=== PATIENT | male | born 1940 | race Caucasian/White ===

== ENCOUNTER 2017-11-07 13:39 | Outpatient (CLI) | payer MEDICARE ==
--- NOTE | 2017-11-07 14:40 | ULT ---
DOPPLER DUPLEX VENOUS ULTRASOUND OF THE RIGHT LOWER EXTREMITY: CPT: 66831 ICD-10-PCS: B54D INDICATIONS: Right lower extremity pain. TECHNIQUE: Color-flow Doppler, spectral wave-form analysis of pulsed Doppler, and Banks-scale imaging with compre ssion and augmentation were used to evaluate the bilateral common femoral, femoral, popliteal, merchandising stock associate ior tibial, and superficial femoral veins, and the proximal portions of the profunda femoral and grea ter saphenous veins. FINDINGS: Appropriate compressibility and flow within the imaged deep venous system of the right lower extremit y. There is soft tissue edema. IMPRESSION: 1. No deep venous thrombosis. 2. Soft tissue edema. Correlate clinically. POS: [facility]
== END 2017-11-07 13:40 | disposition home or self-care (01) ==
LOC: ULT 13:39
PROVIDERS: ATTEND Family Medicine
DX: I82.401 Acute embolism and thrombosis of unspecified deep veins of right lower extremity (principal); M79.9 Soft tissue disorder, unspecified

== ENCOUNTER 2017-11-17 12:03 | Outpatient (CLI) | payer MEDICARE ==
--- NOTE | 2017-11-17 13:39 | RAD ---
CHEST TWO VIEWS: HISTORY: Dyspnea. COMPARISON: 05/05/2017 FINDINGS: Chronic changes of the lung parenchyma with stable hyperinflation. Stable configuration of the cardi ac silhouette. Atherosclerosis is noted. IMPRESSION: Chronic changes. POS: [facility]
== END 2017-11-17 12:04 | disposition home or self-care (01) ==
LOC: RAD 12:03
PROVIDERS: ATTEND Internal Medicine Pulmonary Disease
DX: R06.00 Dyspnea, unspecified (principal)
CPT/HCPCS: 71046

== ENCOUNTER 2017-11-17 13:18 | Inpatient (IN) | payer MEDICARE ==
[2017-11-17 14:01] LABS: #Eosinphils 0.6 thou/uL (0.0-0.7); #Lymphocytes 1.1 thou/uL (1.20-3.40); #Monocytes 0.6 thou/uL (0.11-0.59); #Neutrophils 7.3 thou/uL (1.40-6.50); %Basophils 0.5 % (0.0-1.0); %Eosinophils 6.5 % (0.0-10.0); %Lymphocytes 11.3 % (21.0-51.0); %Monocytes 6.4 % (0.0-10.0); %Neutrophils 75.4 % (42.0-75.0); Hemoglobin 16.5 g/dL (14.0-18.0); Mean Corpuscular HGB CONC 32.9 g/dL (32.0-36.0); Mean Corpuscular Hemoglobin 31.3 pg (27.0-31.0); Mean Corpuscular Volume 95.2 fl (80.0-94.0); Mean Platelet Volume 9.2 fL (7.4-10.4); Platelet Count 149 thou/uL (130-400); RBC Distribution Width 13.7 % (11.5-14.5); Red Blood Cell (RBC) Count 5.28 mill/uL (4.70-6.10); White Blood Cell (WBC) Count 9.7 thou/uL (4.8-10.8)
[2017-11-17] MEDS ORDERED: methylPREDNISolone Sod Succ/PF 125 MG/2 ML VIAL ONE (14:07)
[2017-11-17] MEDS ORDERED: Magnesium Sulfate 2 GM/100 ML BAG ONE (14:08)
[2017-11-17 14:23] LABS: ALT (SGPT) 12 U/L (8-55); AST (SGOT) 22 U/L (5-34); Alkaline Phosphatase 73 U/L (40-150); Anion Gap 13 mmol/L (10-20); BUN (Urea Nitrogen) 17 mg/dL (8.4-25.7); Calc. Creatinine Clearance 0 mL/min (70-130); Calcium 10.4 mg/dL (7.8-10.44); Carbon Dioxide 25 mmol/L (23-31); Chloride 104 mmol/L (98-107); Estimated GFR-MDRD Greater than 90; Globulin 3.7 g/dL (2.4-3.5); Glucose 99 mg/dL (83-110); Potassium 5.1 mmol/L (3.5-5.1); Protein, Total 7.7 g/dL (5.8-8.1); Sodium 137 mmol/L (136-145)
[2017-11-17 14:28] LABS: CKMB 4.2 ng/mL (0-6.6); Troponin I 0.074 ng/mL (< 0.028)
[2017-11-17 15:29] LABS: Troponin I 0.073 ng/mL (< 0.028)
[2017-11-17] MEDS ORDERED: cefTRIAXone\\ROCEPHIN 1 GM in Sodium Chloride 0.9% 100 ML IVPB SCH (16:45)
[2017-11-17] MEDS ORDERED: hydrALAZINE 20 MG/ML VIAL SLOW IVP PRN (16:52)
[2017-11-17] MEDS ORDERED: Ondansetron ODT 4 MG TAB PO PRN (16:52)
[2017-11-17] MEDS ORDERED: Albuterol Sulfate 2.5 mg/3 ml Neb NEB PRN (16:52)
[2017-11-17] MEDS ORDERED: Labetalol HCl 100 MG/20 ML VIAL SLOW IVP PRN (16:52)
[2017-11-17 18:02] VITALS: BMI 36.5
--- NOTE | 2017-11-17 18:03 | HP ---
DATE OF ADMISSION: 11/17/2017 For full history and physical details, please see Dr. Shani Arvizu's dictated H&P. Portions of the hi story and physical have been repeated by myself and I am in agreement with her assessment and plan as documented. HISTORY OF PRESENT ILLNESS: In brief, this patient is a 77-year-old gentleman with a history of afsaneh re COPD and right-sided heart failure. He was sent to the emergency room earlier today at the reques t of his screen room operator. The patient has a history of chronic hypoxic respiratory failure secondary t o severe chronic obstructive pulmonary disease who is typically on 4 liters of oxygen by nasal cannul a at home. However, he reports over the last 2 weeks, he has become increasingly short of breath antoine pite increased use of his nebulizer treatments and COPD medications. He was seen today in his pulmon ologist's office and was found to be satting in the low 80s when his typical oxygen saturations are i n the 90s on 4 liters. The patient was sent to the ER for further evaluation. The patient reports t o me that his symptoms appear to get worse upon lying down, but reports that he is short of breath wi th any amount of exertion which is not standard for him. He also endorses increased cough over the l ast few weeks. He otherwise denies any fevers, chills, chest pain, palpitations, abdominal pain, carmel rrhea, constipation. He does endorse some unilateral lower extremity swelling which was worked up by his outpatient provider with the negative lower extremity ultrasound. The patient reports he was tr eated for approximately 3 weeks for cellulitis and has had improvement in the swelling on right lower extremity. PHYSICAL EXAMINATION: VITAL SIGNS: At this time of my evaluation, the patient's vitals were temperature 98.0, pulse 106, b lood pressure 168/86, respirations 28, oxygen saturation 87% on 4 liters. GENERAL: The patient is alert and oriented x4. He is an obese male who is pleasant. CARDIAC: Evaluation revealed the patient to be mildly tachycardic but regular rhythm. RESPIRATORY: Revealed mildly increased effort. He had poor air entry diffusely. Moderate expirator y wheezes heard throughout the lung fermin. No rhonchi or rales auscultated. ABDOMEN: Soft, nontender with normal bowel sounds. EXTREMITIES: There was no clubbing, cyanosis. Patient did have 2-3+ pitting edema in the right lowe r extremity, more significant than in the left. MUSCULOSKELETAL: There is no increased erythema or warmth in this leg. NEUROLOGIC: Motor and sensory grossly intact. PERTINENT LABORATORY DATA: Show a normal CBC with white count 9.7, H&H 16.5, hematocrit 50.2, platel et count 149. Serum chemistry: Sodium 137, potassium 5.1, chloride 104, bicarbonate 25, BUN 17, cre atinine 0.8, glucose 99. Calcium 10.4. Troponins were indeterminate and elevated at 0.074, then dec reasing to 0.073. Chest x-ray obtained earlier today showed chronic changes including hyperinflation . He had stable configuration of the cardiac silhouette. ASSESSMENT AND PLAN: This is a 77-year-old gentleman with severe chronic obstructive pulmonary disea se with worsening shortness of breath despite supplemental oxygen and increased medical therapy, here for likely chronic obstructive pulmonary disease exacerbation. 1. Acute on chronic hypoxic respiratory failure. The patient will be started on neb treatments as w ell as antibiotics and steroids. We will consult his screen room operator as courtesy and appreciate his in put on this case. The patient has a history of right-sided heart failure, likely chronic obstructive pulmonary disease, but there is currently no evidence of any left-sided dysfunction or pulmonary michelle ma. Anticipate a several day hospitalization as he is likely to slowly improve with severe degree of disease. Also, of note, the patient is supposed to use CPAP therapy, but is noncompliant with this as he reports that he cannot tolerate. I would recommend that we give a trial of that here while in the hospital but he can refuse that if he chooses.
[2017-11-17] MEDS: methylPREDNISolone Sod Succ/PF 125 MG/2 ML VIAL IVP SCH ×2 (18:24→23:06)
--- NOTE | 2017-11-17 20:02 | HP-2 ---
DATE OF ADMISSION: 11/17/2017 CODE STATUS: FULL. PRIMARY CARE PHYSICIAN: Uli Escamilla M.D. ATTENDING: Julien Underwood MD RESIDENT: Shani Arvizu MD SPECIALIST: Reinaldo Nascimento M.D. as decal maker. CHIEF COMPLAINT: Shortness of breath and hypoxia. HISTORY OF PRESENT ILLNESS: This is a 77-year-old male with past medical history of COPD, right-side d heart failure, sent over to the ED from his decal maker's office due to hypoxia with O2 sats arou nd the low 80s on 4 liters oxygen as well as dyspnea. The patient is always on 4 liters of oxygen at home, but he usually sats around 85-90%. The patient reports that he has had increased shortness of breath for the past 2 weeks as well as a cough that is worse when he is lying down. The patient has a cough productive of yellow-green sputum that is blood tinged occasionally. The patient is suppose d to use CPAP at home but has not been compliant. The patient has never been hospitalized for COPD e xacerbation in the past. The patient denies any chest pain or fevers. In the ER, he was given magne sium 2 grams, DuoNebs, and Solu-Medrol 125 mg. PAST MEDICAL HISTORY: 1. COPD. 2. Hypertension. 3. Prostate cancer. 4. Hyperlipidemia. 5. Cor pulmonale. PAST SURGICAL HISTORY: Prostatectomy, bladder surgery, right leg surgery, back surgery, and hernia s urgery. ALLERGIES: No known drug allergies. MEDICATIONS: The patient is uncertain of his medication list at this time, reports his will jerman ng up his medications but knows that he uses Sp[facility]. FAMILY HISTORY: Noncontributory. SOCIAL HISTORY: Former smoker, used to smoke 3-4 packs per day for 40 years but quit 15 years ago. Drinks alcohol socially. Denies drug use. He is . REVIEW OF SYSTEMS: General: Positive for fever and fatigue. Negative for appetite change, night sw eats. EYES: Negative for vision change or eye pain. ENT: Positive for nasal congestion and dry no se secondary to oxygen use. Negative for rhinorrhea, sore throat. Respiratory: Positive for cough, congestion, shortness of breath, exercise intolerance. The patient can only walk a few yards without getting short of breath. Cardiovascular: Positive for edema, PND , and orthopnea. Negative for chest pain. Gastrointestinal: Positive for nausea. Negative for vom iting, diarrhea, constipation, abdominal pain. Genitourinary: Positive for incontinence. Negative for dysuria, polyuria. Skin: Negative for rashes or lesions. Musculoskeletal: Negative for pain o r tenderness. Neurologic: Negative for weakness, numbness. Psych: Negative for anxiety, depressio n. PHYSICAL EXAMINATION: VITAL SIGNS: Blood pressure 168/86, pulse 106, respiratory rate 20, temperature 98.0, pulse ox 87% o n 4 liters. GENERAL: Alert, oriented x3, no acute distress, well-nourished, obese, appropriately interactive. EYES: PERRLA. Extraocular muscles are intact. Conjunctivae are within normal limits. ENT: Nasal mucosa and oropharynx within normal limits. NECK: Supple, no lymphadenopathy. CARDIOVASCULAR: Regular rate and rhythm. No murmurs, gallops, 2+ radial pulses, 2+ left pedal pulse s, and 1+ right pedal pulse. RESPIRATORY: Normal effort, no retractions, decreased air movement and expiratory wheezes. ABDOMEN: Soft, nontender to palpation, normoactive bowel sounds. No mass or distention. EXTREMITIES: No clubbing, cyanosis, or lower extremity edema and erythema. MUSCULOSKELETAL: Structure, tone within normal limits. NEUROLOGIC: No focal deficits. GCS 15. PSYCHIATRIC: Appropriate. LABORATORY DATA: WBC 9.7, hemoglobin 16.5, hematocrit 50.2, platelets 149. Sodium 137, potassium 5. 1, chloride 104, CO2 25, BUN 17, creatinine 0.8, glucose 99, calcium 10.4, AST 22, ALT 12, alkaline p hosphatase 73, T. bilirubin 1.0. Troponin 0.074, CK-MB 4.2. Chest x-ray showed chronic stable hyper inflation atherosclerosis. ASSESSMENT AND PLAN: This is a 77-year-old male with past medical history of chronic obstructive pul monary disease, hypertension, prostate cancer, hyperlipidemia, who presents with increased shortness of breath over the last 2 weeks and decreased oxygen saturation. 1. Acute on chronic hypoxic respiratory failure secondary to chronic obstructive pulmonary disease e xacerbation. We will admit to telemetry, continuous oxygen with goal of greater than 88%. We will t reat with DuoNebs q.4 hours with albuterol q.2 hours p.r.n. for breakthrough shortness of breath or w heezing. We will treat with p.o. prednisone for 5 days and Levaquin. We will monitor oxygen saturat ion breathing. We will consult Dr. Nascimento with Pulmonology and appreciate his recommendations. 2. Indeterminate troponins, likely chronic. The patient has no chest pain. We will trend. 3. Right lower extremity edema. The patient had lower extremity Doppler 10 days ago that was negati ve for deep venous thrombosis. He has been treated for cellulitis and the patient reports that his s ymptoms have improved. The patient has residual edema. We will apply EMERSON hose. 4. Cor pulmonale. We will order an echo, oxygen as needed. Dr. Nascimento has been consulted, appreciate recommendations. 5. Hypertension. Continue home medications. 6. Hyperlipidemia. Continue home medications. 7. Deep venous thrombosis prophylaxis. Lovenox. DISPOSITION/LENGTH OF HOSPITAL STAY. Admit to telemetry likely 2 days. Symptomatic medications will be provided. History and physical exam, as well as management, discussed with Dr. Underwood.
[2017-11-17] MEDS: cefTRIAXone\\ROCEPHIN 1 GM, Syringe 0.4 ML in Sterile Water 9.6 ML SLOW IVP SCH (20:58)
[2017-11-17] MEDS: Mometasone/Formoterol 120 PUFF INHALER INH SCH (21:52)
[2017-11-17] MEDS ORDERED: Atorvastatin Calcium 10 MG TAB PO SCH (22:45)
[2017-11-17] MEDS ORDERED: Lorazepam 0.5 MG TAB PO SCH (22:45)
[2017-11-17] MEDS ORDERED: Sodium Chloride 0.9% 10 ML ONE (23:01)
--- NOTE | 2017-11-18 00:08 | CON ---
DATE OF CONSULTATION: 11/17/2017 HISTORY OF PRESENT ILLNESS: Aris Eagle is a 77-year-old gentleman who was seen in the office w ith shortness of breath of several days' duration. His sats were 82 in my office on 4 liters nasal O 2. He was sent to the ER for admission. He saw Dr. Escamilla recently. Ultrasound of his leg was done because of swelling, which was negative fo r DVT. Can barely walk even 10 feet without getting markedly short of breath. Longstanding history of tobacco abuse. He was smoking up until most recently, at least [id number] tobacco abuse. He h ad a sleep study done, which revealed sleep apnea, but he is unable to wear his CPAP. In the office, he did not have any chest pain, chills, sweats, hemoptysis. Sputum was clear. PAST MEDICAL HISTORY: Prostate cancer, end-stage COPD, sleep apnea. PAST SURGICAL HISTORY: Bladder surgery, right leg and back surgery, prostatectomy. MEDICATIONS: His list of medicine from home includes low-flow O2 nebulizer, CPAP machine. In the ER , he was given steroids, nebulizer treatments. SOCIAL HISTORY: Former smoker. FAMILY HISTORY: I spoke to his son regarding his history intake. PHYSICAL EXAMINATION: VITAL SIGNS: Blood pressure 160/86, respirations 28, pulse 106, temperature 98, sats on 4 liters now 87%. CHEST: Decreased breath sounds. No wheezing. CARDIAC: Normal S1, S2. No gallops. ABDOMEN: Soft. No mass. X-rays and labs were reviewed as noted. REVIEW OF SYSTEMS: Otherwise, 10-point negative. LABORATORY DATA: His white count is 9,000, H&H 16 and 50, platelet count 49. Electrolytes are armando l. Troponin is slightly elevated at 0.073. IMPRESSION: 1. bronchitis. 2. Elevated troponin. 3. Sleep apnea with severe deconditioning. PLAN: Neb treatments ordered. Echo will be ordered. Consider cardiac input. We will follow. This is 70 minutes of my time, of which 50% was spent at the bedside counseling the patient.
[2017-11-18] MEDS ORDERED: Sodium Chloride 0.9% 10 ML ONE ×2 (05:22→20:56)
[2017-11-18 05:43] LABS: Anion Gap 12 mmol/L (10-20); BUN (Urea Nitrogen) 28 mg/dL (8.4-25.7); Calc. Creatinine Clearance 93 mL/min (70-130); Calcium 9.7 mg/dL (7.8-10.44); Carbon Dioxide 27 mmol/L (23-31); Chloride 102 mmol/L (98-107); Estimated GFR-MDRD 72; Glucose 215 mg/dL (83-110); Sodium 136 mmol/L (136-145)
[2017-11-18] MEDS: methylPREDNISolone Sod Succ/PF 125 MG/2 ML VIAL IVP SCH ×4 (05:58→23:06)
[2017-11-18] MEDS ORDERED: Spiriva 18 MCG CAP (Box of 5 Caps) INH SCH (07:00)
--- NOTE | 2017-11-18 08:37 | PDOC.FM ---
- Subjective Subjective: No significant overnight events. Patient states he is doing well this morning. He appears to be slightly tachypneic, but reports he is not short of breath. He feels much improved from yesterday. He has not been up walking around much since he has been in hospital. He was encouraged to ambulate. He is currently on 4L of O2. - Objective MAR Reviewed: Yes Vital Signs & Weight: Vital Signs (12 hours) Temp Pulse Resp BP BP Pulse Ox 11/18/17 07:47 97.5 F L 107 H 19 90 L 11/18/17 07:44 97.5 F L 107 H 19 178/96 H 90 L 11/18/17 04:00 97.9 F 105 H 16 162/81 H 90 L 11/18/17 02:04 106 H 16 94 L 11/18/17 00:45 108 H 16 94 L 11/18/17 00:01 106 H 24 H 138/63 91 L 11/17/17 20:55 97.7 F 115 H 24 H 175/84 H 96 11/17/17 20:50 97.7 F 115 H 24 H 96 Weight Weight 105.687 kg I&O: 11/17/17 11/18/17 11/19/17 06:59 06:59 06:59 Intake Total 1467 Output Total 525 Balance 942 Result Diagrams: 11/17/17 13:45 11/18/17 05:08 EKG Reviewed by me: Yes Radiology Reviewed by me: Yes <Gloria Chang - Last Filed: 11/18/17 08:35> - Objective Vital Signs & Weight: Vital Signs (12 hours) Temp Pulse Resp BP BP Pulse Ox 11/18/17 11:33 97.8 F 103 H 18 169/77 H 90 L 11/18/17 11:12 92 L 11/18/17 11:08 102 H 20 92 L 11/18/17 08:41 178/96 H 11/18/17 07:47 97.5 F L 107 H 19 90 L 11/18/17 07:44 97.5 F L 107 H 19 178/96 H 90 L 11/18/17 04:00 97.9 F 105 H 16 162/81 H 90 L 11/18/17 02:04 106 H 16 94 L 11/18/17 00:45 108 H 16 94 L Weight Weight 105.687 kg I&O: 11/17/17 11/18/17 11/19/17 06:59 06:59 06:59 Intake Total 1467 480 Output Total 525 Balance 942 480 Result Diagrams: 11/17/17 13:45 11/18/17 05:08 <YasmineJulien Herminia - Last Filed: 11/18/17 12:24> Phys Exam - Physical Examination Constitutional: NAD HEENT: moist MMs Neck: supple Decreased breath sounds throughout. Mild expiratory wheezes. Cardiovascular: RRR Gastrointestinal: soft, no distention Musculoskeletal: no edema Neurological: non-focal Psychiatric: normal affect, A&O x 3 Skin: no rash, cap refill <2 seconds <Gloria Chang - Last Filed: 11/18/17 08:35> Dx/Plan (1) Acute and chronic respiratory failure with hypoxia Code(s): J96.21 - ACUTE AND CHRONIC RESPIRATORY FAILURE WITH HYPOXIA Status: Acute (2) COPD exacerbation Code(s): J44.1 - CHRONIC OBSTRUCTIVE PULMONARY DISEASE W (ACUTE) EXACERBATION Status: Acute (3) Elevated troponin Code(s): R74.8 - ABNORMAL LEVELS OF OTHER SERUM ENZYMES Status: Acute (4) Edema of right lower extremity Code(s): R60.0 - LOCALIZED EDEMA Status: Acute (5) Cor pulmonale Code(s): I27.81 - COR PULMONALE (CHRONIC) Status: Chronic (6) HTN (hypertension) Code(s): I10 - ESSENTIAL (PRIMARY) HYPERTENSION Status: Chronic QualifierTitle: Hypertension type: essential hypertension Qualified Code( s): I10 - Essential (primary) hypertension (7) HLD (hyperlipidemia) Code(s): E78.5 - HYPERLIPIDEMIA, UNSPECIFIED Status: Chronic - Plan Plan: 1. Acute on chronic hypoxic respiratory failure 2/2 COPD Exacerbation - Continue steroids - Continue levoquin - Duonebs q4h DEVIN - Albuterol q2h PRN for breakthrough SOB/wheezing - Continue home medications - Monitor O2 sats - Encourage ambulation - Echo pending to evaluate for right heart failure/cor pulmonale 2. COPD Exacerbation - See plan as documented above 3. Indeterminate troponins - CE's trending down - Patient denies CP 4. RLE edema likely 2/2 resolving cellulitis - s/p treatment with abx - Edema improving - Marciano benítez on bilateral LE's - Venous doppler negative for DVT in outpatient setting 5. Cor pulmonale - Documented in prior records - Echo pending 6. HTN - Continue home medications 7. HLD - Continue home medications <Gloria Chang - Last Filed: 11/18/17 08:35> Attending Addendum - Attending Addendum I personally evaluated the patient and discussed the management with Dr. Chang. I agree with the History, Examination, Assessment and Plan documented above with any addition or exceptions noted below. Patient with significant improvement since yesterday. Reports able to ambulate with minimal increased dyspnea. He continues on steroids, neb treatments, and antibiotics. Will discuss with Dr. Nascimento the appropriate antibiotic regimen to continue him on. He had mild elevation of troponin on admission, likely either demand ischemia versus troponin leak from his R heart failure. Echo is pending. Anticipate 1-2 more days at his current progress before ready for discharge. <Julien Underwood - Last Filed: 11/18/17 12:24>
[2017-11-18] MEDS: CeleCOXIB 100 MG CAP PO SCH (08:40)
[2017-11-18] MEDS: Potassium Chloride 10 MEQ TAB PO SCH (08:41)
[2017-11-18] MEDS: Aspirin 81 mg Enteric Coated Tablet PO SCH (08:41)
[2017-11-18] MEDS: Enoxaparin Sodium 40 MG/0.4 ML SYRINGE SC SCH (08:41)
[2017-11-18] MEDS: Furosemide 40 MG TAB PO SCH (08:41)
[2017-11-18] MEDS: Lisinopril 20 MG TAB PO SCH (08:41)
[2017-11-18] MEDS ORDERED: predniSONE 20 MG TAB PO SCH (09:00)
[2017-11-18] MEDS: Mometasone/Formoterol 120 PUFF INHALER INH SCH ×2 (11:08→19:10)
[2017-11-18 11:13] LABS: Hemoglobin A1c 6.6 % (4.0-6.0)
--- NOTE | 2017-11-18 14:51 | PRG ---
DATE OF SERVICE: 11/18/2017 SUBJECTIVE: Fco this morning, he is better. He is less short of breath, less coughing. PHYSICAL EXAMINATION: VITAL SIGNS: Blood pressure is 117/96, sats are 90% on 4 liters, respirations 19, temperature 97. CHEST: Decreased breath sounds with minimal wheezing. CARDIAC: Normal S1 and S2. No gallops. ABDOMEN: Soft, no masses. LABORATORY DATA: White count 9,000. Electrolytes are normal. IMPRESSION: 1. COPD \ bronchitis.exacerbation 2. Poor compliance with medication. PLAN: Continue steroids, neb treatments, we will deescalate antibiotics tomorrow if cultures are negative. We will follow. JUAND
[2017-11-18] MEDS: metFORMIN 500 MG TAB PO SCH (18:08)
[2017-11-18] MEDS: cefTRIAXone\\ROCEPHIN 1 GM, Syringe 0.4 ML in Sterile Water 9.6 ML SLOW IVP SCH (18:19)
[2017-11-18] MEDS ORDERED: Lorazepam 0.5 MG TAB PO SCH (21:00)
[2017-11-18] MEDS ORDERED: Atorvastatin Calcium 10 MG TAB PO SCH (21:00)
[2017-11-19] MEDS ORDERED: Sodium Chloride 0.9% 10 ML ONE (05:11)
[2017-11-19] MEDS: methylPREDNISolone Sod Succ/PF 125 MG/2 ML VIAL IVP SCH (05:16)
[2017-11-19 06:31] LABS: Anion Gap 13 mmol/L (10-20); BUN (Urea Nitrogen) 39 mg/dL (8.4-25.7); Calc. Creatinine Clearance 88 mL/min (70-130); Calcium 9.3 mg/dL (7.8-10.44); Carbon Dioxide 30 mmol/L (23-31); Chloride 101 mmol/L (98-107); Estimated GFR-MDRD 68; Glucose 130 mg/dL (83-110); Sodium 139 mmol/L (136-145)
[2017-11-19] MEDS: Mometasone/Formoterol 120 PUFF INHALER INH SCH (07:57)
[2017-11-19] MEDS: CeleCOXIB 100 MG CAP PO SCH (09:02)
[2017-11-19] MEDS: Enoxaparin Sodium 40 MG/0.4 ML SYRINGE SC SCH (09:03)
[2017-11-19] MEDS: Aspirin 81 mg Enteric Coated Tablet PO SCH (09:03)
[2017-11-19] MEDS: Lisinopril 20 MG TAB PO SCH (09:03)
[2017-11-19] MEDS: Furosemide 40 MG TAB PO SCH (09:03)
[2017-11-19] MEDS: Potassium Chloride 10 MEQ TAB PO SCH (09:03)
[2017-11-19] MEDS: metFORMIN 500 MG TAB PO SCH (09:03)
--- NOTE | 2017-11-19 09:22 | PDOC.FM ---
- Subjective Subjective: Patient doing well this AM. No significant overnight events. He feels much improved from admission and is even able to walk around without oxygen for periods of time without getting significantly short of breath. No complaints of chest pain. - Objective MAR Reviewed: Yes Vital Signs & Weight: Vital Signs (12 hours) Temp Pulse Resp BP BP Pulse Ox 11/19/17 09:03 142/76 H 11/19/17 07:56 114 H 20 91 L 11/19/17 07:32 96.4 F L 108 H 18 91 L 11/19/17 07:30 96.4 F L 108 H 18 142/76 H 91 L 11/19/17 05:20 96 11/19/17 04:21 97 F L 97 20 100/45 L 89 L 11/19/17 04:14 89 L 11/19/17 02:41 92 18 91 L 11/18/17 23:04 93 24 H 90 L 11/18/17 22:36 100 20 89 L Weight Weight 104.916 kg I&O: 11/18/17 11/19/17 11/20/17 06:59 06:59 06:59 Intake Total 1469 2921 360 Output Total 525 552 Balance 942 2369 360 Result Diagrams: 11/17/17 13:45 11/19/17 04:49 EKG Reviewed by me: Yes Radiology Reviewed by me: Yes <Gloria Chang - Last Filed: 11/19/17 09:20> - Objective Vital Signs & Weight: Vital Signs (12 hours) Temp Pulse Resp BP BP Pulse Ox 11/19/17 11:46 118 H 22 H 89 L 11/19/17 09:03 142/76 H 11/19/17 07:56 114 H 20 91 L 11/19/17 07:32 96.4 F L 108 H 18 91 L 11/19/17 07:30 96.4 F L 108 H 18 142/76 H 91 L 11/19/17 05:20 96 11/19/17 04:21 97 F L 97 20 100/45 L 89 L 11/19/17 04:14 89 L 11/19/17 02:41 92 18 91 L Weight Weight 104.916 kg I&O: 11/18/17 11/19/17 11/20/17 06:59 06:59 06:59 Intake Total 1467 2921 360 Output Total 525 552 Balance 942 0150 360 Result Diagrams: 11/17/17 13:45 11/19/17 04:49 <Julien Underwood - Last Filed: 11/19/17 12:23> Phys Exam - Physical Examination Constitutional: NAD HEENT: moist MMs Neck: supple Respiratory: no wheezing Decreased breath sounds throughout Cardiovascular: RRR Gastrointestinal: soft, positive bowel sounds RLE edema, 2+ Neurological: non-focal, moves all 4 limbs Psychiatric: normal affect, A&O x 3 Skin: cap refill <2 seconds <Gloria Chang - Last Filed: 11/19/17 09:20> Dx/Plan (1) Acute and chronic respiratory failure with hypoxia Code(s): J96.21 - ACUTE AND CHRONIC RESPIRATORY FAILURE WITH HYPOXIA Status: Acute (2) COPD exacerbation Code(s): J44.1 - CHRONIC OBSTRUCTIVE PULMONARY DISEASE W (ACUTE) EXACERBATION Status: Acute (3) Elevated troponin Code(s): R74.8 - ABNORMAL LEVELS OF OTHER SERUM ENZYMES Status: Acute (4) Edema of right lower extremity Code(s): R60.0 - LOCALIZED EDEMA Status: Acute (5) Cor pulmonale Code(s): I27.81 - COR PULMONALE (CHRONIC) Status: Chronic (6) HTN (hypertension) Code(s): I10 - ESSENTIAL (PRIMARY) HYPERTENSION Status: Chronic QualifierTitle: Hypertension type: essential hypertension Qualified Code( s): I10 - Essential (primary) hypertension (7) HLD (hyperlipidemia) Code(s): E78.5 - HYPERLIPIDEMIA, UNSPECIFIED Status: Chronic - Plan Plan: 1. Acute on chronic hypoxic respiratory failure 2/2 COPD Exacerbation - Continue steroids - Continue levoquin - Duonebs q4h DEVIN - Albuterol q2h PRN for breakthrough SOB/wheezing - Continue home medications - Monitor O2 sats - Encourage ambulation - Echo pending to evaluate for right heart failure/cor pulmonale 2. COPD Exacerbation - See plan as documented above 3. Indeterminate troponins - CE's trending down - Patient denies CP 4. RLE edema likely 2/2 resolving cellulitis - s/p treatment with abx - Edema improving - Marciano hose on bilateral LE's - Venous doppler negative for DVT in outpatient setting - Recommended patient follow with Dr. Escamilla for RLE swelling 5. Cor pulmonale - Documented in prior records - Echo pending 6. HTN - Continue home medications 7. HLD - Continue home medications 8. IHSAN - Cr 1.06 today - May need mild fluids or encouraged PO intake Dispo: Likely home today with antibiotics and steroids <Gloria Chang - Last Filed: 11/19/17 09:20> Attending Addendum - Attending Addendum I personally evaluated the patient and discussed the management with Dr. Chang. I agree with the History, Examination, Assessment and Plan documented above with any addition or exceptions noted below. Patient feels back to baseline this morning and has been able to perform some tasks without O2. He is on his baseline O2 requirement. He is stable for discharge per his denture contour wire specialist. <Julien Underwood - Last Filed: 11/19/17 12:23>
--- NOTE | 2017-11-19 12:37 | PRG ---
DATE OF SERVICE: 11/19/2017 This morning, he is better, less short of breath, less coughing, less wheezing. PHYSICAL EXAMINATION: VITAL SIGNS: Sats are 98% on 4 liters, blood pressure 140/76, respirations 18. EXTREMITIES: His right leg is still swollen. CHEST: Chest reveals decreased breath sounds, no wheezing. CARDIAC: Normal S1, S2. ABDOMEN: Soft, no masses. His electrolytes are normal. His BNP is 80. IMPRESSION: 1. Right-sided failure, cor pulmonale. 2. Chronic obstructive pulmonary disease, respiratory failure. 3. Morbid obesity. PLAN: Switch over to oral medication. He can probably be discharged home in the next 24-48 hours. He is encouraged to use his CPAP at night time. Will have to talk to his [employer] company to see what we can do about it.
[2017-11-19 14:28] VITALS: BP 136/78; TEMP 97.2
[2017-11-19] MEDS ORDERED: Cefdinir 300 MG CAP PO SCH (21:00)
[2017-11-20] MEDS ORDERED: predniSONE 20 MG TAB PO SCH (08:00)
--- NOTE | 2017-11-20 15:11 | DIS-2 ---
DATE OF ADMISSION: 11/17/2017 DATE OF DISCHARGE: 11/19/2017 RESIDENT: Gloria Chang D.O. ADMITTING ATTENDING: Julien Underwood M.D. DISCHARGE ATTENDING: Julien Underwood M.D. CONSULTATIONS: Pulmonology, Dr. Nascimento. PROCEDURES: Echocardiogram showed ejection fraction visually estimated at 50% to 60% with mildly dilated left atrium and mild concentric left ventricular hypertrophy. There was flow reversal noted and suggestive of diastolic dysfunction. PRIMARY DIAGNOSES: 1. Acute on chronic hypoxic respiratory failure secondary to chronic obstructive pulmonary disease exacerbation. 2. Elevated troponin. 3. Sleep apnea with severe deconditioning. 4. Diastolic congestive heart failure. SECONDARY DIAGNOSES: 1. Cor pulmonale. 2. Hypertension. 3. Hyperlipidemia. 4. Acute kidney injury. 5. Right lower extremity edema likely secondary to resolving cellulitis. DISCHARGE MEDICATIONS: 1. Cefdinir 300 mg oral twice daily for an additional 5 days. 2. Metformin 500 mg oral twice daily with meals. 3. Dulera 200 mcg/5 mcg inhaler 2 puffs inhalation twice daily. 4. Prednisone taper starting with 40 mg x5 days, then 20 mg x3 days, and then 10 mg x2 days, for a total of 10 days of steroids. 5. Potassium chloride 10 mEq oral daily. 6. Furosemide 40 mg oral daily. 7. Lisinopril 20 mg oral daily. 8. Aspirin 81 mg oral daily. 9. Plavix 75 mg oral daily. 10. Celecoxib 200 mg oral daily. 11. Atorvastatin calcium 10 mg oral daily. 12. Lorazepam 1 to 2 mg oral at bedtime. DISCONTINUED MEDICATIONS: None. HISTORY OF PRESENT ILLNESS AND HOSPITAL COURSE: This is a 77-year-old male with past medical history of COPD, right-sided heart failure, and hypertension who was sent over to the emergency department by his explosive operator bomb's office due to hypoxia with O2 sat in the low 80s on 4 liters of oxygen as well as dyspnea. The patient always uses 4 liters of oxygen at home, but is usually satting on 85% to 90%. The patient reported that he has had increased shortness of breath for the past 2 weeks as well as a cough that is worse when he is lying down. The patient did report a cough productive of yellow-green sputum that is blood tinged occasionally. The patient is supposed to be using CPAP at home, but has not been compliant. He has never been hospitalized for COPD exacerbation in the past, but he denies any chest pain or fevers at this time. In the emergency department, he was given magnesium 2 grams, DuoNeb, and Solu-Medrol 125 mg. The patient remained stable throughout the course of his hospital stay. He improved drastically from admission through the following days. He was continued on antibiotics, steroids and DuoNeb treatments for his COPD exacerbation and continued to recover. He denied any shortness of breath on followup visit. His CBC was within normal limits and chemistry panel showed good electrolytes and kidney function. Hemoglobin A1c was performed, which was 6.6, thus giving him a diagnosis of diabetes. He was started on metformin during this hospitalization and advised to follow closely with his primary care physician for further management. Due to an initial elevated troponin, his troponins were trended and they did continue to downtrend. The patient did not endorse any chest pain and only complained of shortness of breath. The patient continued to do incredibly well over the course of few days, it was decided that he was stable enough to go home with a steroid taper as well as 5 additional days worth of antibiotics. He is advised to continue with his nebulizer treatments at home and encouraged to use CPAP, although he has complained that he has tried using his CPAP in the past and he does not tolerate it very well. The above findings and plan were discussed with Dr. Nascimento , his explosive operator bomb, who agreed that patient was stable for discharge to home. The patient was advised to follow up closely in clinic. DISPOSITION: Stable. DISCHARGE INSTRUCTIONS: 1. Location: Home. 2. Diet: Heart healthy and consistent carbohydrates. 3. Activity: As tolerated. 4. Followup: The patient is to follow up with his primary care physician, Dr. Escamilla within 7 days of discharge to ensure resolution/improvement of symptoms. Additionally, he is scheduled to follow with Dr. Nascimento within 7 days as well. NEAL
--- NOTE | 2017-11-22 14:24 | EKG ---
Test Reason : DYSPNEA Blood Pressure : / mmHG Vent. Rate : 101 BPM Atrial Rate : 101 BPM P-R Int : 144 ms QRS Dur : 138 ms QT Int : 368 ms P-R-T Axes : 057 071 028 degrees QTc Int : 477 ms Sinus tachycardia Right bundle branch block Abnormal ECG Confirmed by GAY NOVA, JHOANA ([id number]), photography editor CASANDRA MAI ([id number]) on 11/22/2017 2:24:30 PM Referred By: Confirmed By:JHOANA RASHID MD
== END 2017-11-19 15:50 | disposition home or self-care (01) | DRG 189 ==
LOC: ERS 13:18 → 2NO 14:28
PROVIDERS: ADMIT Student in an Organized Health Care Education/Training Program; ATTEND Student in an Organized Health Care Education/Training Program
DX: J96.21 Acute and chronic respiratory failure with hypoxia (principal); N17.9 Acute kidney failure, unspecified; I27.81 Cor pulmonale (chronic); J44.1 Chronic obstructive pulmonary disease with (acute) exacerbation; E66.01 Morbid (severe) obesity due to excess calories; I11.0 Hypertensive heart disease with heart failure; I50.32 Chronic diastolic (congestive) heart failure; L03.115 Cellulitis of right lower limb; Z99.81 Dependence on supplemental oxygen; Z85.46 Personal history of malignant neoplasm of prostate; Z90.79 Acquired absence of other genital organ(s); E78.5 Hyperlipidemia, unspecified; Z87.891 Personal history of nicotine dependence; Z68.36 Body mass index [BMI] 36.0-36.9, adult; G47.30 Sleep apnea, unspecified; E11.9 Type 2 diabetes mellitus without complications; R60.0 Localized edema
CPT/HCPCS: 36415; 71046; 80048; 80053; 82553; 83036; 83880; 84484; 85025; 93005; 93306; 94640; 96365; 96375; A4216; J0696; J1650; J1956; J2930; J3475; J7620

== ENCOUNTER 2018-01-02 09:37 | Inpatient (IN) | payer MEDICARE ==
[2018-01-02 10:15] LABS: #Basophils 0.1 thou/uL (0.0-0.2); #Eosinphils 0.5 thou/uL (0.0-0.7); #Lymphocytes 1.4 thou/uL (1.20-3.40); #Monocytes 1.1 thou/uL (0.11-0.59); #Neutrophils 9.4 thou/uL (1.40-6.50); %Basophils 0.7 % (0.0-1.0); %Eosinophils 4.4 % (0.0-10.0); %Lymphocytes 11.2 % (21.0-51.0); %Monocytes 8.4 % (0.0-10.0); %Neutrophils 75.3 % (42.0-75.0); Mean Corpuscular HGB CONC 32.4 g/dL (32.0-36.0); Mean Corpuscular Hemoglobin 30.7 pg (27.0-31.0); Mean Corpuscular Volume 94.6 fl (80.0-94.0); Mean Platelet Volume 8.7 fL (7.4-10.4); Platelet Count 132 thou/uL (130-400); RBC Distribution Width 12.7 % (11.5-14.5); Red Blood Cell (RBC) Count 4.89 mill/uL (4.70-6.10); White Blood Cell (WBC) Count 12.4 thou/uL (4.8-10.8)
[2018-01-02] MEDS ORDERED: Water For Inject, Bacteriostat 30 ML ONE (10:37)
[2018-01-02] MEDS ORDERED: methylPREDNISolone Sod Succ/PF 125 MG/2 ML VIAL ONE (10:37)
[2018-01-02 10:38] LABS: ALT (SGPT) 13 U/L (8-55); AST (SGOT) 14 U/L (5-34); Alkaline Phosphatase 69 U/L (40-150); Anion Gap 15 mmol/L (10-20); BUN (Urea Nitrogen) 37 mg/dL (8.4-25.7); Bilirubin, Total 0.5 mg/dL (0.2-1.2); CK (CPK) 53 U/L (30-200); Calc. Creatinine Clearance 0 mL/min (70-130); Calcium 9.9 mg/dL (7.8-10.44); Carbon Dioxide 31 mmol/L (23-31); Chloride 99 mmol/L (98-107); Estimated GFR-MDRD 53; Globulin 3.2 g/dL (2.4-3.5); Glucose 122 mg/dL (83-110); Potassium 4.4 mmol/L (3.5-5.1); Protein, Total 7.2 g/dL (5.8-8.1); Sodium 141 mmol/L (136-145)
[2018-01-02 10:43] LABS: CKMB 1.9 ng/mL (0-6.6); Troponin I 0.147 ng/mL (< 0.028)
--- NOTE | 2018-01-02 11:34 | RAD ---
CHEST 1 VIEW: HISTORY: Dyspnea. COMPARISON: 05/05/17. FINDINGS: Cardiac silhouette is magnified and partially obscured by patchy bibasilar infiltrates. Pulmonary va sculature is engorged. Mediastinum is midline. IMPRESSION: Patchy bibasilar infiltrates are favored to be related to pulmonary vascular congestion. Close radio graphic followup is suggested. POS: [facility]
--- NOTE | 2018-01-02 11:46 | ULT ---
LEFT LOWER EXTREMITY VENOUS DUPLEX STUDY: Deep veins of the left lower extremity were evaluated color Doppler, spectral analysis, and compressi on. INDICATION: Left lower extremity pain and edema. FINDINGS: The left common femoral vein and femoral vein show normal compression and blood flow. Left popliteal vein shows decompressed compressibility and echogenic thrombus with only partial flow seen. The posterior tibial vein also shows a loss of compressibility. There is no flow seen in the left posterior tibial vein. IMPRESSION: Evidence of deep vein thrombosis with extension into the popliteal vein. The technologist informed t he patient's nurse of these findings. CODE CR POS: [facility]
[2018-01-02] MEDS ORDERED: Enoxaparin Sodium 100 MG/ML SYRINGE ONE (11:57)
[2018-01-02] MEDS ORDERED: Enoxaparin Sodium 30 MG/0.3 ML SYRINGE ONE (11:57)
--- NOTE | 2018-01-02 13:12 | CT ---
CT PULMONARY ANGIO CHEST WITH CONTRAST: Date: 01/02/18 Multiple axial tomograms obtained through the chest with pulmonary angio protocol. Multiplanar recons truction and 3D postprocessing obtained. HISTORY: Deep venous thrombosis and shortness of breath. FINDINGS: Pulmonary arteries show adequate opacification. There is no evidence of pulmonary embolus identified. Thoracic aorta shows atherosclerotic calcification. No evidence of dissection. Review of the lung fermin reveals too numerous to count pulmonary nodules seen throughout both lungs. There are more numerous in the lower lung fermin bilaterally. The larger nodules measure up to 1.5 c m with numerous nodules measuring in the 1.0 cm range and subcentimeter range. Findings would indicat e diffuse pulmonary metastasis. There is no evidence of inflammatory infiltrate. No evidence of effus ion. Review of the mediastinum reveals adenopathy. Enlarged paratracheal lymph nodes and AP window lymph n odes are noted. There are rib deformities on the left consistent with old fractures. No evidence of o sseous metastasis. Images through the upper abdomen are unremarkable. IMPRESSION: 1. No evidence of pulmonary embolus. 2. Numerous bilateral pulmonary nodules consistent with diffuse pulmonary metastasis. There is assoc iated mediastinal and hilar adenopathy. POS: [facility]
--- NOTE | 2018-01-02 14:12 | PDOC.FM ---
- Subjective Subjective: This is a stable 77 yo M being admitted for acute on chronic resp failure, DVT, and multiple pulmonary metastasis. Patient states he has been feeling more weak and short of breath for the last few days. He denies cough or mucous production. States he has had generalized weakness. States his appetite is increased. Denies N/V/D. Denies fevers, chills, or sweats. - Objective Result Diagrams: 01/02/18 10:07 01/02/18 10:07 <Thom Bolaños - Last Filed: 01/02/18 14:02> - Objective Result Diagrams: 01/02/18 10:07 01/02/18 10:07 <Jayesh Tena - Last Filed: 01/02/18 14:37>
[2018-01-02] MEDS ORDERED: Ondansetron ODT 4 MG TAB PO PRN (14:25)
[2018-01-02] MEDS ORDERED: Guaifenesin DM 100-10/5 ML UDCUP PO PRN (14:25)
--- NOTE | 2018-01-02 14:38 | PDOC.FPRHP ---
- History of Present Illness Chief Complaint: SOB History of Present Illness: This is a stable 77 yo M being admitted for acute on chronic resp failure, DVT, and multiple pulmonary metastasis. 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 Patient states he has been feeling more weak and short of breath for the last few days. He denies cough or mucous production. States he has had generalized weakness. States his appetite is increased. Denies N/V/D. Denies fevers, chills, or sweats. Patient has soreness and swelling of the L lower extremity. He states this has been going on for 6 weeks or so but got red and more swollen in the last 2-3 days. He states he gets and aching 5/10 pain when walking. Nothing seems to make it feel better. ED Course: Methylpred 125mg, Lovenox 1mg/kg, CTA negative for PE but shows mult mets, Doppler US shows LLE DVT, blood and urine cultures taken - Allergies/Adverse Reactions Allergies Allergy/AdvReac Type Severity Reaction Status Date / Time No Known Allergies Allergy Verified 01/02/18 15:29 - Home Medications Medication Instructions Recorded Confirmed Type Aspirin [Ecotrin Low Strength] 81 mg PO DAILY 11/17/17 01/02/18 History Atorvastatin Calcium [Lipitor] 20 mg PO DAILY 11/17/17 01/02/18 History Celecoxib [Celebrex] 200 mg PO DAILY 11/17/17 01/02/18 History Furosemide [Lasix] 40 mg PO DAILY 11/17/17 01/02/18 History LORazepam [Lorazepam] 1 - 2 mg PO HS 11/17/17 01/02/18 History Potassium Chloride [Klor-Con 10] 20 meq PO DAILY 11/17/17 01/02/18 History DULoxetine [Cymbalta] 60 mg PO DAILY 01/02/18 01/02/18 History Gabapentin 300 mg PO TID 01/02/18 01/02/18 History Lisinopril/Hydrochlorothiazide 1 tablet PO DAILY 01/02/18 01/02/18 History [Lisinopril-Hctz 20-12.5 mg Tab] Metolazone [Metolazone] 5 mg PO DAILY 01/02/18 01/02/18 History Mirabegron [Myrbetriq ER] 25 mg PO DAILY 01/02/18 01/02/18 History - History PMHx: Prostate cancer, bladder cancer, COPD, DVT, HTN, HLD PSHx: prostatectomy, last cystoscopy 8 years ago, orthopedic foot surgery FHx: mesothelioma in father, no heart disease or other known cancers Social: started smoking at age 16 stopped about age 56, smoked 4ppd when he quit , occassional 1 beer, no drugs - Review of Systems General: reports: fatigue. denies: fever/chills, weight/appetite/sleep changes Eyes: reports: vision changes (chronic). denies: eye pain ENT: denies: nasal congestion, rhinorrhea Respiratory: reports: shortness of breath. denies: cough, congestion Cardiovascular: denies: chest pain, palpitation Gastrointestinal: reports: nausea. denies: vomiting, diarrhea, constipation, abdominal pain, GI bleeding Genitourinary: denies: incontinence, dysuria Skin: reports: rashes (LLE) Musculoskeletal: denies: pain, arthritis/arthralgias Neurological: denies: numbness, weakness Psychological: denies: anxiety, depression - Vital signs BP: [155/93] HR: [95] RR: [25] Tmax: [98.1] Pox: [96]% on [ra] Wt: [108.86] - Physical Exam Constitutional: NAD, awake, alert and oriented HEENT: normocephalic and atraumatic, PERRLA, EOMI, MMM Neck: supple, FROM Heart: RRR, normal S1/S2 Lungs: other (supraclavicular retratctions, inspiratory wheezes, no rales or rhonchi, moderate air movement) Abdomen: soft, non-tender, bowel sounds present Musculoskeletal: normal structure, ROM grossly normal Neurological: no focal deficit, normal sensation Skin: no rash/lesions, capillary refill <2 seconds Heme/Lymphatic: no unusual bruising or bleeding Psychiatric: normal mood and affect, good judgment and insight FMR H&P: Results - Labs Result Diagrams: 01/02/18 10:07 01/02/18 10:07 Lab results: WBC 12.4 thou/uL (4.8-10.8) H 01/02/18 10:07 Hgb 15.0 g/dL (14.0-18.0) 01/02/18 10:07 Hct 46.3 % (42.0-52.0) 01/02/18 10:07 MCV 94.6 fl (80.0-94.0) H 01/02/18 10:07 Plt Count 132 thou/uL (130-400) 01/02/18 10:07 Neutrophils % 75.3 % (42.0-75.0) H 01/02/18 10:07 Sodium 141 mmol/L (136-145) 01/02/18 10:07 Potassium 4.4 mmol/L (3.5-5.1) 01/02/18 10:07 Chloride 99 mmol/L (98-107) 01/02/18 10:07 Carbon Dioxide 31 mmol/L (23-31) 01/02/18 10:07 BUN 37 mg/dL (8.4-25.7) H 01/02/18 10:07 Creatinine 1.31 mg/dL (0.6-1.3) H 01/02/18 10:07 Glucose 122 mg/dL (83-110) H 01/02/18 10:07 Calcium 9.9 mg/dL (7.8-10.44) 01/02/18 10:07 Total Bilirubin 0.5 mg/dL (0.2-1.2) 01/02/18 10:07 AST 14 U/L (5-34) 01/02/18 10:07 ALT 13 U/L (8-55) 01/02/18 10:07 Alkaline Phosphatase 69 U/L (40-150) 01/02/18 10:07 Creatine Kinase 53 U/L (30-200) 01/02/18 10:07 CK-MB (CK-2) 1.9 ng/mL (0-6.6) 01/02/18 10:07 B-Natriuretic Peptide 51.0 pg/mL (0-100) 01/02/18 10:07 Serum Total Protein 7.2 g/dL (5.8-8.1) 01/02/18 10:07 Albumin 4.0 g/dL (3.4-4.8) 01/02/18 10:07 FMR H&P: A/P - Problem List (1) Lung metastasis Current Visit: Yes Status: Acute Code(s): C78.00 - SECONDARY MALIGNANT NEOPLASM OF UNSPECIFIED LUNG (2) Acute and chronic respiratory failure with hypoxia Current Visit: No Status: Acute Code(s): J96.21 - ACUTE AND CHRONIC RESPIRATORY FAILURE WITH HYPOXIA (3) COPD exacerbation Current Visit: No Status: Acute Code(s): J44.1 - CHRONIC OBSTRUCTIVE PULMONARY DISEASE W (ACUTE) EXACERBATION (4) Edema of right lower extremity Current Visit: No Status: Acute Code(s): R60.0 - LOCALIZED EDEMA (5) Elevated troponin Current Visit: No Status: Acute Code(s): R74.8 - ABNORMAL LEVELS OF OTHER SERUM ENZYMES (6) HLD (hyperlipidemia) Current Visit: No Status: Chronic Code(s): E78.5 - HYPERLIPIDEMIA, UNSPECIFIED (7) HTN (hypertension) Current Visit: No Status: Chronic Code(s): I10 - ESSENTIAL (PRIMARY) HYPERTENSION Qualifiers: Hypertension type: essential hypertension Qualified Code(s): I10 - Essential (primary) hypertension - Plan # Mult lung metastatis - CTA shows too numerous to count 1-1.5cm nodules - Ca, ALT, AST, ALP all WNL - check LDHj - Hx bladder, prostate cancer, long smoking history - Dr. Nascimento is his search engine optimization specialist, he is consulted, recs appreciated - Oncology consulted, rec brain/abd/pelvis CT w/ w/o contrast, bone scan - CT will be 01/03 to preserve kidney function # acute on chronic respiratory failure - on non-rebreather - likely 2/2 mets, will treat for COPD 2/2 history # COPD exacerbation - prednisone, duoneb levoquin - lasix 40 IV daily - blood, urine culture # Elevated trop -.17 in ed, trend # DVT - lovenox 1mg/kg BID - no scds - history of staph, will monitor for fever/culture # HTN - home meds # HLD - home meds # Code - DNI - palliative consulted # PPX - Lovenox, no SCDs for now 2/2 DVT FMR H&P: Upper Level - Plan Date/Time: 01/02/18 1438 I, [Jayesh Tena], have evaluated this patient and agree with findings/plan as outlined by automotive internet sales manager resident. Pertinent changes/additions are listed here. 77 y/o M with COPD exacerbation and with CT chest showing Pulmonary Lung Mets. 1 Acute on chronic respiratory failure 2/2 COPD exacerbation - NRB mask, continue albuterol treatments. Pulm mets contributing. - prednisone - blood, urine culture pending - lasix 40 IV daily 2 Mult lung metastatis - CTA shows many1-1.5cm nodules - Hx bladder, prostate cancer, long smoking history but stopped 13 yrs ago - Dr. Nascimento is his search engine optimization specialist, he is consulted, recs appreciated - Oncology consulted, rec brain/abd/pelvis CT w/ w/o contrast, bone scan - CT will be 01/03 to preserve kidney function. 3 Elevated troponin - .17 in ed, trending x3 4 DVT - likely 2/2 hypercoagulopathy of malignancy; lovenox 1mg/kg BID. Will likely be discharged on anticoagulation 5 HTN - Continue home meds Attending Addendum - Attending Addendum Date/Time: 01/02/18 1721 I personally evaluated the patient and discussed the management with Dr. Bolaños I agree with the History, Examination, Assessment and Plan documented above with any addition or exceptions noted below.Patient with exacerbation COPD presented to ER found with respiratory failure 2/2 COPD, Cor Pulmonale, LLE DVT and incidental finding on CTA with multiple Pumonary nodules c/w metastic disease. History of Bladder and prostrate CA. Patient admitted and will proceed CT w/wo head, abdomen and pelvis in AM Oncology and Pulmonary have been consulted and appreciate recommendations
[2018-01-02 14:40] LABS: Troponin I 0.135 ng/mL (< 0.028)
[2018-01-02 15:00] VITALS: BMI 33.6
[2018-01-02] MEDS ORDERED: Lorazepam 1 MG TAB PO PRN ×2 (15:09→21:00)
[2018-01-02] MEDS ORDERED: Sodium Chloride 0.9% 1,000 ML IV SCH (15:30)
[2018-01-02 16:28] LABS: Troponin I 0.123 ng/mL (< 0.028)
[2018-01-02] MEDS: Potassium Chloride 10 MEQ TAB PO SCH (17:06)
[2018-01-02 17:35] LABS: Bilirubin Negative (Negative); Blood, Urine Negative (Negative); Clarity CLEAR (Clear); Glucose, Urine (Dipstick) 100 mg/dL (Negative); Leukocyte Negative (Negative); Nitrite Negative (Negative); Protein, Urine (Dipstick) Negative (Neg-Trace); Specific Gravity, Urine 1.016 (1.002-1.036); Urobilinogen 0.2 mg/dL (0.2-1.0); pH, Urine 6.5 (5.0-9.0)
--- NOTE | 2018-01-02 18:15 | CON ---
DATE OF CONSULTATION: 01/02/2018 REASON FOR CONSULTATION: Lung nodules. HISTORY OF PRESENT ILLNESS: Mr. Eagle is a very pleasant 77-year-old male with a history of prostate cancer, bladder cancer, and COPD. Over the last few weeks, he has had left lower extremity pain and general malaise. He presented to the ER for evaluation. The patient has severe COPD and is on 4 liters nasal cannula at home. He has a greater than [id number] history of smoking. A CT angio was performed in the ER. It was negative for pulmonary embolus; however, showed numerous bilateral pulmonary nodules consistent with pulmonary metastases. His left lower extremity ultrasound was positive for DVT. The patient was started on Lovenox and admitted for further workup. The patient had prostate cancer in 2007. He had a prostatectomy at that time. He also had bladder cancer, details of this is not available to me. He is followed by Dr. Whelan on a routine basis and has had no issues with either one of these for greater than 10 years. He denies any headaches or blurred vision, no chest pain. He has chronic shortness of breath. He denies any weight loss. In fact , admits to weight gain and insatiable hunger. He has limited mobility secondary to his lung function and lower extremity pain, only able to walk around home without difficulty. Denies any abdominal pain, no melena, hematochezia, or hematuria. PAST MEDICAL HISTORY: 1. COPD. 2. Hypertension. 3. Prostate cancer. 4. Bladder cancer. 5. Hyperlipidemia. 6. Cor pulmonale. PAST SURGICAL HISTORY: 1. Prostatectomy. 2. Bladder surgery. 3. Right leg surgery. 4. Back surgery. 5. Hernia surgery. ALLERGIES: No known drug allergies. HOME MEDICATIONS: 1. Aspirin 81 mg daily. 2. Lipitor 10 mg daily. 3. Celebrex 200 mg daily. 4. Plavix 75 mg daily. 5. Lasix 40 mg daily. 6. Zestril 20 mg daily. 7. Lorazepam p.r.n. 8. Metformin 500 mg b.i.d. 9. Formoterol daily. 10. Potassium chloride daily. 11. Prednisone 10 mg daily. FAMILY HISTORY: Noncontributory. SOCIAL HISTORY: , but remarried recently, lives with his spouse, quit smoking over 15 years ago, greater than [id number] history of smoking, no alcohol or illicit drug use. REVIEW OF SYSTEMS: Twelve point review of systems is negative except for noted in HPI. PHYSICAL EXAMINATION: VITAL SIGNS: Temperature is 97.3, pulse is 95, respiratory rate 22, BP is 174/ 87. He is 89% on 4 liters nasal cannula. GENERAL: This is a chronically ill-appearing male in no acute distress. HEENT: Normocephalic, atraumatic. Pupils equal and reactive to light. NECK: Supple. CARDIOVASCULAR: Regular rate and rhythm. LUNGS: Diminished throughout. He is on nasal cannula. ABDOMEN: Soft. He has a large midline hernia. Bowel sounds are positive. EXTREMITIES: He has 1+ edema in his left lower extremity. SKIN: Erythema with chronic skin changes in his lower extremities. HEMATOLOGICAL: There is no petechia or purpura. NEUROLOGIC: Nonfocal. PSYCHIATRIC: The patient is alert and oriented and answers questions appropriately. PERTINENT LABORATORY AND X-RAYS: Current WBCs are 12.4, hemoglobin 15, hematocrit 46.3, platelet count 132,000. He has got 75% neutrophils, 11% lymphocytes. Sodium is 141, potassium 4.4, chloride is 99, CO2 is 31, BUN is 37 , creatinine 1.31, glucose is 122, calcium 9.9, total bilirubin is 0.45, AST is 14, ALT is 13, alkaline phosphatase is 69. LDH is 336, creatinine kinase is 53 , CK-MB is 1.9, troponin is 0.135. BNP is 51. Serum total protein is 7.2, albumin 4.0, globulin 3.2. PSA is less than 0.02. Radiology per HPI. IMPRESSION: 1. Pulmonary nodules, worrisome for metastatic disease. 2. Severe chronic obstructive pulmonary disease. 3. History of prostate cancer. 4. History of bladder cancer. DISCUSSION: The patient will have an abdominal and pelvis CT, a brain CT and a bone scan to look for any further primary or metastatic disease. His PSA is negative. We will check a CEA. I will need tissue biopsy to confirm diagnosis , if possible via bronchoscopy or CT guided needle biopsy. This will not happen probably until Friday. His severe COPD and poor performance status will be a limiting factor to treatment. He should remain on Lovenox anticoagulation over the week end and once a tissue biopsy is done can be transitioned to oral anticoagulation. Thank you for the consult. We will follow his hospital course once diagnosis has been obtained. NEAL
[2018-01-02] MEDS ORDERED: Budesonide 0.5 MG/2 ML NEB INH SCH (18:30)
[2018-01-02] MEDS: Mometasone/Formoterol 120 PUFF INHALER INH SCH (18:53)
[2018-01-02] MEDS ORDERED: FLU VACC TS2017-18 (>65YR) 0.5 ML SYRINGE IM ONE (21:00)
[2018-01-02] MEDS: Enoxaparin Sodium 120 MG/0.8 ML SYRINGE SC SCH (21:05)
--- NOTE | 2018-01-02 23:27 | CON ---
DATE OF CONSULTATION: 01/02/2018 HISTORY OF PRESENT ILLNESS: Aris Eagle is a 77-year-old morbidly obese gentleman well known to me who apparently was doing well, in several days developed increasing shortness of breath, cough, a nd marked left leg swelling. His initial chest x-ray in the ER which I personally reviewed showed he had no evidence of any pneumonia, chronic scarring bilaterally. He had swelling of his left leg. Ultrasound revealed DVT. A CT of the chest was done to rule out pu lmonary emboli, which showed extensive bilateral multiple lung nodules, which are all new. The patient had a history of prostate cancer diagnosed many years ago following radical surgery. He has severe end-stage COPD, sleep apnea, can barely walk 30 feet without getting markedly short of elena ath. Baseline sats are normally 88% on 5 liters. He has a longstanding history of tobacco abuse, it is unclear whether he has quit smoking. He underwent ultrasound of his leg recently which was negative until now, which had shown evidence of DVT. No hemoptysis, no chest pain. Still difficult breathing. PAST MEDICAL HISTORY: COPD, sleep apnea, prostate cancer. PAST SURGICAL HISTORY: Back surgery, bladder surgery, prostate surgery. HOME MEDICATIONS: Prednisone 10, metformin 500 twice a day, potassium, Dulera, lisinopril 20, Ativan , Lasix 40, Plavix 75, Celebrex 200, Omnicef, Lipitor, aspirin. ALLERGIES: None. SOCIAL/FAMILY HISTORY: Noted above, tobacco abuse. Alcohol, none. extensive negative. Please note medical records and all x-rays personally reviewed. PHYSICAL EXAMINATION: VITAL SIGNS: On examination, sats are 94 on 50%. Temperature is 97, pulse 80, blood pressure 130/80 . CHEST: Minimal wheezing. CARDIAC: Normal S1, S2. ABDOMEN: Soft, no masses. LABORATORY DATA: White count 12,000, H and H 15 and 46, platelet count is normal. Creatinine 1.3. Chest x-ray once again shows bilateral extensive lower lung fibronodular disease. X-ray COPD. CT shows multiple numerous small pulmonary nodules, mainly peripheral in nature. IMPRESSION: 1. Chronic obstructive pulmonary disease exacerbation and bronchitis. 2. Deep venous thrombosis, left leg. 3. Multiple pulmonary nodules. 4. Chronic obstructive pulmonary disease. 5. Azotemia. PLAN: Continue neb treatments, steroids, empiric antibiotics, supportive care. Workup for his metas tatic disease. Lovenox etc. We will follow. Consultation note 70 minutes, 50% of the time direct patient care.
[2018-01-03 04:46] LABS: #Lymphocytes 0.7 thou/uL (1.20-3.40); #Monocytes 0.9 thou/uL (0.11-0.59); #Neutrophils 10.7 thou/uL (1.40-6.50); %Basophils 0.2 % (0.0-1.0); %Eosinophils 0.2 % (0.0-10.0); %Lymphocytes 5.4 % (21.0-51.0); %Neutrophils 87.3 % (42.0-75.0); Hemoglobin 14.6 g/dL (14.0-18.0); Mean Corpuscular Hemoglobin 31.2 pg (27.0-31.0); Mean Corpuscular Volume 94.4 fl (80.0-94.0); Mean Platelet Volume 8.5 fL (7.4-10.4); Platelet Count 136 thou/uL (130-400); RBC Distribution Width 12.7 % (11.5-14.5); Red Blood Cell (RBC) Count 4.68 mill/uL (4.70-6.10); White Blood Cell (WBC) Count 12.3 thou/uL (4.8-10.8)
[2018-01-03 05:05] LABS: Anion Gap 15 mmol/L (10-20); BUN (Urea Nitrogen) 40 mg/dL (8.4-25.7); Calc. Creatinine Clearance 64 mL/min (70-130); Calcium 9.2 mg/dL (7.8-10.44); Carbon Dioxide 28 mmol/L (23-31); Chloride 101 mmol/L (98-107); Estimated GFR-MDRD 46; Glucose 223 mg/dL (83-110); Potassium 4.8 mmol/L (3.5-5.1); Sodium 139 mmol/L (136-145)
--- NOTE | 2018-01-03 05:48 | PDOC.FM ---
- Subjective Subjective: Pt states SOB has much improved. On home O2 4-5L and now on 5-6. did tell family about probably cancer. Drinking contrast currently for upcoming CT scans. - Objective Vital Signs & Weight: Vital Signs (12 hours) Temp Pulse Resp BP BP Pulse Ox 01/03/18 04:14 98.1 F 93 20 102/53 L 85 L 01/03/18 02:11 113 H 20 93 L 01/03/18 00:03 98.6 F 122 H 20 110/52 L 92 L 01/02/18 22:55 117 H 24 H 92 L 01/02/18 19:40 97.7 F 120 H 20 151/73 H 88 L 01/02/18 18:52 123 H 24 H 88 L I&O: 01/01/18 01/02/18 01/03/18 06:59 06:59 06:59 Output Total 550 Balance -550 Result Diagrams: 01/03/18 04:38 01/03/18 04:38 <Jayesh Tena - Last Filed: 01/03/18 10:43> - Objective Vital Signs & Weight: Vital Signs (12 hours) Temp Pulse Resp BP BP Pulse Ox 01/03/18 10:47 93 24 H 90 L 01/03/18 08:00 98 F 93 16 92 L 01/03/18 07:59 98 F 93 16 143/71 H 92 L 01/03/18 07:47 90 L 01/03/18 07:41 94 20 90 L 01/03/18 04:14 98.1 F 93 20 102/53 L 85 L 01/03/18 02:11 113 H 20 93 L 01/03/18 00:03 98.6 F 122 H 20 110/52 L 92 L I&O: 01/02/18 01/03/18 01/04/18 06:59 06:59 06:59 Intake Total 810 Output Total 550 Balance 260 Result Diagrams: 01/03/18 04:38 01/03/18 04:38 <Keron Villalta - Last Filed: 01/03/18 11:44> Phys Exam - Physical Examination HEENT: PERRLA, moist MMs, sclera anicteric Neck: no nodes, no JVD, supple Respiratory: no rales, wheezing present mild ronchi b/l Cardiovascular: RRR, no significant murmur, no rub Gastrointestinal: soft, non-tender, no distention Musculoskeletal: pulses present edema 1+ pitting L>R Neurological: non-focal, normal sensation Lymphatic: no nodes Psychiatric: normal affect, A&O x 3 Skin: no rash, normal turgor <Phenix CityJayesh - Last Filed: 01/03/18 10:43> Dx/Plan (1) Lung metastasis Code(s): C78.00 - SECONDARY MALIGNANT NEOPLASM OF UNSPECIFIED LUNG Status: Acute (2) Acute and chronic respiratory failure with hypoxia Code(s): J96.21 - ACUTE AND CHRONIC RESPIRATORY FAILURE WITH HYPOXIA Status: Acute (3) COPD exacerbation Code(s): J44.1 - CHRONIC OBSTRUCTIVE PULMONARY DISEASE W (ACUTE) EXACERBATION Status: Acute (4) Edema of right lower extremity Code(s): R60.0 - LOCALIZED EDEMA Status: Acute (5) Elevated troponin Code(s): R74.8 - ABNORMAL LEVELS OF OTHER SERUM ENZYMES Status: Acute (6) HLD (hyperlipidemia) Code(s): E78.5 - HYPERLIPIDEMIA, UNSPECIFIED Status: Chronic (7) HTN (hypertension) Code(s): I10 - ESSENTIAL (PRIMARY) HYPERTENSION Status: Chronic QualifierTitle: Hypertension type: essential hypertension Qualified Code( s): I10 - Essential (primary) hypertension - Plan Plan: 77 y/o M with COPD exacerbation and with CT chest showing Pulmonary Lung Mets. 1 Acute on chronic respiratory failure 2/2 COPD exacerbation - BNC, continue albuterol treatments and steroids. Pulm mets contributing. - prednisone 40mg daily - blood, urine culture pending 2 Mult probable lung metastatis - CTA shows many1-1.5cm nodules - Hx bladder, prostate cancer, long smoking history but stopped 13 yrs ago - Oncology consulted, rec brain/abd/pelvis CT w/ w/o contrast, bone scan, CEA - Biopsy likely Friday - Palliative Consult 3 Elevated troponin - Like demand ischemia; downtrending 4 DVT - likely 2/2 hypercoagulopathy of malignancy; lovenox 1mg/kg BID. Will likely be discharged on anticoagulation 5 HTN - Continue home meds 6. IHSAN - d/c Lasix 40 once daily and placed on gentle fluids as having multiple CT's with contrast performed. Also may be somewhat dry(tachycardic overnight). Plan to resume lasix once Hydrated and Cr improving. Dispo: anticipate discharge in 3-4 pending cancer w/u. <Jayesh Tena - Last Filed: 01/03/18 10:43> (1) Lung metastasis Code(s): C78.00 - SECONDARY MALIGNANT NEOPLASM OF UNSPECIFIED LUNG Status: Acute (2) Acute and chronic respiratory failure with hypoxia Code(s): J96.21 - ACUTE AND CHRONIC RESPIRATORY FAILURE WITH HYPOXIA Status: Acute (3) COPD exacerbation Code(s): J44.1 - CHRONIC OBSTRUCTIVE PULMONARY DISEASE W (ACUTE) EXACERBATION Status: Acute (4) Edema of right lower extremity Code(s): R60.0 - LOCALIZED EDEMA Status: Acute (5) Elevated troponin Code(s): R74.8 - ABNORMAL LEVELS OF OTHER SERUM ENZYMES Status: Acute (6) HLD (hyperlipidemia) Code(s): E78.5 - HYPERLIPIDEMIA, UNSPECIFIED Status: Chronic (7) HTN (hypertension) Code(s): I10 - ESSENTIAL (PRIMARY) HYPERTENSION Status: Chronic Qualifiers: Hypertension type: essential hypertension Qualified Code(s): I10 - Essential (primary) hypertension <Keron Villalta - Last Filed: 01/03/18 11:44> Attending Addendum - Attending Addendum Date/Time: 01/03/18 1141 I personally evaluated the patient and discussed the management with Dr. Tena I agree with the History, Examination, Assessment and Plan documented above with any addition or exceptions noted below.Patient for metastatic w/u CT head, abdomen and pelvis today. Patient and family aware of care plan <Keron Villalta - Last Filed: 01/03/18 11:44>
[2018-01-03] MEDS ORDERED: Dextrose 5% in Water 1,000 ML IV PRN (05:52)
[2018-01-03] MEDS ORDERED: Dextrose 50% Abboject 50 ML SYRINGE SLOW IVP PRN (05:52)
[2018-01-03] MEDS ORDERED: HumaLOG 300 UNITS/3 ML VIAL SC PRN (05:52)
[2018-01-03] MEDS ORDERED: Sodium Chloride 0.9% 1,000 ML IV SCH (06:00)
[2018-01-03] MEDS: Mometasone/Formoterol 120 PUFF INHALER INH SCH ×2 (07:41→18:49)
[2018-01-03] MEDS: Atorvastatin Calcium 10 MG TAB PO SCH (08:20)
[2018-01-03] MEDS: Aspirin 81 mg Enteric Coated Tablet PO SCH (08:20)
[2018-01-03] MEDS: Potassium Chloride 10 MEQ TAB PO SCH ×2 (08:20→16:52)
[2018-01-03] MEDS: predniSONE 20 MG TAB PO SCH (08:20)
[2018-01-03] MEDS: Sodium Chloride 0.9% 1,000 ML IV SCH ×2 (08:20→16:32)
[2018-01-03] MEDS: Enoxaparin Sodium 120 MG/0.8 ML SYRINGE SC SCH ×2 (08:23→20:15)
[2018-01-03] MEDS ORDERED: Furosemide 40 MG/4 ML VIAL SLOW IVP SCH (09:00)
--- NOTE | 2018-01-03 09:44 | RAD ---
BONE SURVEY: HISTORY: A 77-year-old male with a history of multiple pulmonary metastases and history of bladder and prostat e cancer. FINDINGS/IMPRESSION: There is some severe generalized degenerative changes and bone demineralization. There are a few sub tle areas of decreased bone density involving the calvarium which I favor not to be metastatic diseas e. No evidence for other metastasis. Multiple healed fractures and other old changes. Followup nuc lear bone scan is recommended for further assessment. POS: [facility]
--- NOTE | 2018-01-03 10:35 | CT ---
PRE AND POSTCONTRAST CT IMAGES BRAIN: HISTORY: Multiple metastases. History of prostate cancer. FINDINGS: Pre- and postcontrast-enhanced CT images of the brain are obtained. Images demonstrate no evidence of calvarial lesions. No abnormal areas of intracranial enhancement are seen to suggest metastatic disease. No evidence of intracranial hemorrhages or mass lesions seen. IMPRESSION: Cortical atrophy; otherwise, unremarkable pre- and postcontrast-enhanced CT images of the brain. POS: [facility]
--- NOTE | 2018-01-03 11:16 | CT ---
CONTRAST ENHANCED CT IMAGES ABDOMEN AND PELVIS: HISTORY: Patient with a history of lung cancer with metastases. History of prostate cancer and bladder cancer . FINDINGS: Contrast-enhanced CT images of the abdomen and pelvis were obtained after administration of IV and or al contrast. The lung bases demonstrate numerous pulmonary parenchymal soft tissue metastatic lesions too numerous to count throughout the visualized portions of the lung parenchyma. Coronary artery calcifications are seen. The liver and spleen are unremarkable. The adrenal glands are unremarkable. Bilateral renal cortica l cysts seen. There is an infrarenal abdominal aortic aneurysm with diameter measuring 3.9 x 3.4 cm with a superior inferior length of 5.7 cm. There is marked weakness and herniation of the subumbilical anterior abdominal wall with herniation o f intraperitoneal fat and small bowel loops inferiorly along the anterior aspect of the lower abdomin al cavity extending into the anterior aspect of the pubic symphysis. No definite evidence of significant osseous metastatic lesions seen. IMPRESSION: 1. Extensive and too numerous to count lung parenchymal metastases. 2. Abdominal aortic aneurysm. 3. Subumbilical large anterior abdominal hernia extending inferiorly. POS: [facility]
--- NOTE | 2018-01-03 17:42 | PRG ---
DATE OF SERVICE: 01/03/2018 SUBJECTIVE: Mr. Eagle is feeling better. This morning, he is less short of breath. OBJECTIVE: VITAL SIGNS: Blood pressure 143/71, sats 94% on 5 liters, respiration 16, temperature 98. CHEST: Decreased breath sounds, no wheezing. CARDIAC: Normal S1. ABDOMEN: Soft, no masses. IMPRESSION: 1. Obstructive sleep apnea noncompliant with continuous positive airway pressure. 2. Chronic obstructive pulmonary disease exacerbation, bronchitis. 3. Cor pulmonale . I agree with oral antibiotics, steroids. Awaiting all imaging studies to s ee which are the best source for a tissue diagnosis to decide any form of treatment if any. The patient understands. We will review CT abdomen to make a decision regarding the best source for a tissue diagnosis. At th is stage, it appears a CT guided biopsy of right mid chest lesion may be appropriate. We will discuss and follow.
[2018-01-04] MEDS: Sodium Chloride 0.9% 1,000 ML IV SCH (01:36)
[2018-01-04] MEDS ORDERED: Furosemide 40 MG/4 ML VIAL SLOW IVP SCH (02:30)
--- NOTE | 2018-01-04 06:20 | PDOC.FM ---
- Subjective Subjective: One episode of desaturation overnight into the 70's. Crackles on exam so lasix was given and 1600ml were diuresed. Currently no complaints on home 5L. Will not pursue lung biopsy or chemo. - Objective Vital Signs & Weight: Vital Signs (12 hours) Temp Pulse Resp BP BP Pulse Ox 01/04/18 04:10 93 L 01/04/18 04:00 97.7 F 75 18 133/67 91 L 01/04/18 02:10 84 28 H 91 L 01/04/18 00:09 98.7 F 79 19 101/59 L 90 L 01/03/18 22:29 95 20 91 L 01/03/18 20:15 97.9 F 94 20 91 L 01/03/18 20:06 97.9 F 94 20 123/56 L 91 L 01/03/18 18:48 95 20 90 L I&O: 01/02/18 01/03/18 01/04/18 06:59 06:59 06:59 Intake Total 810 1300 Output Total 550 2100 Balance 260 -800 Result Diagrams: 01/03/18 04:38 01/04/18 06:34 <Jayesh Tena - Last Filed: 01/04/18 07:32> - Objective Vital Signs & Weight: Vital Signs (12 hours) Temp Pulse Resp BP BP Pulse Ox 01/04/18 12:00 98.4 F 104 H 22 H 110/62 88 L 01/04/18 10:33 90 16 01/04/18 08:00 97.8 F 90 16 132/67 91 L 01/04/18 06:42 86 16 01/04/18 04:10 93 L 01/04/18 04:00 97.7 F 75 18 133/67 91 L 01/04/18 02:10 84 28 H 91 L I&O: 01/03/18 01/04/18 01/05/18 06:59 06:59 06:59 Intake Total 810 1300 Output Total 550 2100 Balance 260 -800 Result Diagrams: 01/03/18 04:38 01/04/18 06:34 <Keron Villalta - Last Filed: 01/04/18 12:29> Phys Exam - Physical Examination on [facility] HEENT: PERRLA, moist MMs Neck: no nodes, no JVD, supple, full ROM Respiratory: no rhonchi, wheezing present Moderate crackles at both lung bases Cardiovascular: RRR, no significant murmur Gastrointestinal: soft, non-tender, no distention Musculoskeletal: no edema, pulses present Neurological: non-focal, normal sensation Lymphatic: no nodes Psychiatric: normal affect, A&O x 3 Skin: no rash, normal turgor <Jayesh Tena - Last Filed: 01/04/18 07:32> Dx/Plan (1) Lung metastasis Code(s): C78.00 - SECONDARY MALIGNANT NEOPLASM OF UNSPECIFIED LUNG Status: Acute (2) Acute and chronic respiratory failure with hypoxia Code(s): J96.21 - ACUTE AND CHRONIC RESPIRATORY FAILURE WITH HYPOXIA Status: Acute (3) COPD exacerbation Code(s): J44.1 - CHRONIC OBSTRUCTIVE PULMONARY DISEASE W (ACUTE) EXACERBATION Status: Acute (4) Edema of right lower extremity Code(s): R60.0 - LOCALIZED EDEMA Status: Acute (5) Elevated troponin Code(s): R74.8 - ABNORMAL LEVELS OF OTHER SERUM ENZYMES Status: Acute (6) HLD (hyperlipidemia) Code(s): E78.5 - HYPERLIPIDEMIA, UNSPECIFIED Status: Chronic (7) HTN (hypertension) Code(s): I10 - ESSENTIAL (PRIMARY) HYPERTENSION Status: Chronic QualifierTitle: Hypertension type: essential hypertension Qualified Code( s): I10 - Essential (primary) hypertension - Plan Plan: 77 y/o M with COPD exacerbation and CT chest showing Pulmonary Lung Mets. 1 Acute on chronic respiratory failure 2/2 COPD exacerbation - Improved. [facility] home level of 5L O2. Continue albuterol treatments and steroids. Pulm mets contributing. - prednisone 40mg daily. plan to taper. - blood, urine culture pending but NGTD 2 Mult probable lung metastatis - Found initially on lung CTA evaluating for PE which shows many 1-1.5cm nodules. Brain/abd/pelvis CT negative. Patient was told by oncology he would not be a good candidate for Chemo due to his poor respiratory function and patient has declined wanting a lung biopsy or pursuing chemo. - Hx bladder, prostate cancer, long smoking history but stopped 13 yrs ago - Palliative Consult 3 Elevated troponin - Resolved. Like demand ischemia; downtrended 4 DVT - likely 2/2 hypercoagulopathy of malignancy; lovenox 1mg/kg BID. Will likely be discharged on anticoagulation 5 HTN - Stable; Continue home meds 6. IHSAN - resume Lasix 40 once daily <Jayesh Tena - Last Filed: 01/04/18 07:32> (1) Lung metastasis Code(s): C78.00 - SECONDARY MALIGNANT NEOPLASM OF UNSPECIFIED LUNG Status: Acute (2) Acute and chronic respiratory failure with hypoxia Code(s): J96.21 - ACUTE AND CHRONIC RESPIRATORY FAILURE WITH HYPOXIA Status: Acute (3) COPD exacerbation Code(s): J44.1 - CHRONIC OBSTRUCTIVE PULMONARY DISEASE W (ACUTE) EXACERBATION Status: Acute (4) Edema of right lower extremity Code(s): R60.0 - LOCALIZED EDEMA Status: Acute (5) Elevated troponin Code(s): R74.8 - ABNORMAL LEVELS OF OTHER SERUM ENZYMES Status: Acute (6) HLD (hyperlipidemia) Code(s): E78.5 - HYPERLIPIDEMIA, UNSPECIFIED Status: Chronic (7) HTN (hypertension) Code(s): I10 - ESSENTIAL (PRIMARY) HYPERTENSION Status: Chronic Qualifiers: Hypertension type: essential hypertension Qualified Code(s): I10 - Essential (primary) hypertension <Keron Villalta - Last Filed: 01/04/18 12:29> Attending Addendum - Attending Addendum Date/Time: 01/04/18 1218 I personally evaluated the patient and discussed the management with Dr. Tena I agree with the History, Examination, Assessment and Plan documented above with any addition or exceptions noted below.Patient has declined pursuing tissue confirmation. Should be able transition po anticoagulant and dismiss home if no further evaluation. <Keron Villalta - Last Filed: 01/04/18 12:29>
[2018-01-04] MEDS: Mometasone/Formoterol 120 PUFF INHALER INH SCH (06:41)
[2018-01-04 07:02] LABS: Anion Gap 15 mmol/L (10-20); BUN (Urea Nitrogen) 29 mg/dL (8.4-25.7); Calc. Creatinine Clearance 92 mL/min (70-130); Calcium 9.5 mg/dL (7.8-10.44); Carbon Dioxide 29 mmol/L (23-31); Chloride 97 mmol/L (98-107); Estimated GFR-MDRD 70; Glucose 131 mg/dL (83-110); Potassium 4.3 mmol/L (3.5-5.1); Sodium 137 mmol/L (136-145)
[2018-01-04] MEDS: Atorvastatin Calcium 10 MG TAB PO SCH (08:57)
[2018-01-04] MEDS: Aspirin 81 mg Enteric Coated Tablet PO SCH (08:57)
[2018-01-04] MEDS: Potassium Chloride 10 MEQ TAB PO SCH (08:57)
[2018-01-04] MEDS: predniSONE 20 MG TAB PO SCH (08:57)
[2018-01-04] MEDS: Enoxaparin Sodium 120 MG/0.8 ML SYRINGE SC SCH (08:58)
[2018-01-04 12:15] VITALS: BP 110/62; TEMP 98.4
--- NOTE | 2018-01-04 12:40 | RAD ---
AP VIEW CHEST: HISTORY: Shortness of breath concerning for congestive heart failure and volume overload. FINDINGS: AP view chest is obtained on 01/04/18. Comparison is made to previous exam from 01/02/18. AP view chest demonstrates EKG leads seen over the chest. Some pulmonary vascular congestion is seen . Small bilateral pleural effusions seen. IMPRESSION: Pulmonary vascular congestion with small bilateral pleural effusions. Findings have not significantl y changed since the previous exam from 2 days earlier. POS: [facility]
--- NOTE | 2018-01-04 18:47 | PRG ---
DATE OF SERVICE: 01/04/2018 SUBJECTIVE: Aris Eagle this morning is awake and responsive. Denies any shortness of breath, cough, wheezing. OBJECTIVE: VITAL SIGNS: Sats are 95 liters, temperature 98, blood pressure 130/67. CHEST: Decreased breath sounds, no wheezing. CARDIAC: Normal S1, S2. No gallop. LABORATORY DATA: Electrolytes are normal. IMPRESSION: 1. Multiple pulmonary nodules, metastatic disease, unknown primary. 2. Severe end-stage chronic obstructive pulmonary disease. 3. Obstructive sleep apnea. PLAN: Lengthy discussion with the patient. A bronchoscopy will not be able to reach his multiple yvon ng nodules. He declined to have a CT-guided biopsy and says he does not want chemotherapy. Plan at this stage, he can be transferred out of the MICU. Continue present treatment. Prognosis paul field.
--- NOTE | 2018-01-05 07:23 | DIS-2 ---
DATE OF ADMISSION: 01/02/2018 DATE OF DISCHARGE: 01/04/2018 RESIDENT: Jayesh Tena D.O. ADMITTING ATTENDING: Keron Villalta M.D. DISCHARGE ATTENDING: Keron Villalta M.D. CONSULTATIONS: Pulmonology and Oncology. PROCEDURES: 1. CT chest: Revealed COPD changes and numerous diffuse metastatic lesions. 2. CT abdomen shows abdominal aortic aneurysm, around 4-5 cm, umbilical hernia. 3. Brain CT was normal. 4. Bone skeletal x-rays were normal. PRIMARY DIAGNOSIS: 1. Chronic obstructive pulmonary disease exacerbation. 2. Lung metastases. SECONDARY DIAGNOSES: 1. History of bladder and prostate cancer. 2. Hyperlipidemia. 3. Hypertension. 4. Chronic obstructive pulmonary disease. 5. Previous stroke. 6. [id number] smoking history. DISCHARGE MEDICATIONS: 1. Xarelto 15 mg b.i.d. x21 days, then 20 mg daily. 2. Levaquin 5 days, 500 mg daily. 3. Prednisone 40 mg daily for 5 days. 4. Aspirin 81 daily. 5. Atorvastatin 20 mg daily. 6. Lasix 40 mg daily. 7. Lorazepam 1-2 mg nightly. 8. Potassium chloride 20 mEq p.o. daily. 9. Cymbalta 60 mg p.o. daily. 10. Gabapentin 300 mg p.o. t.i.d. 11. Lisinopril/hydrochlorothiazide 1 tablet p.o. daily. 12. Metolazone 5 mg p.o. daily. 13. Myrbetriq 25 mg p.o. daily. HISTORY OF PRESENT ILLNESS AND HOSPITAL COURSE: Mr. Eagle is a 77-year-old male who initially pre sented in respiratory distress, found to have COPD exacerbation. He is on 5 liters home O2, briefly required CPAP, then was stabilized on room air. He was admitted to the ICU for acute respiratory jyotsna lure. His COPD exacerbation did improve throughout his 3 day stay with steroids and oxygen as needed . Upon admission, he also complained of left lower extremity edema and was found to have a DVT. CTA to scan for a PE revealed numerous lung metastases which were new to the patient. Oncology was cons ulted. The patient had a full body CT scans which did not reveal a primary source. Oncology stated that due to his severe COPD, he would likely not be a great candidate for medical chemotherapy treatm ent. With this news, the patient decided against further investigation including biopsy. He was dis charged with followup appointments with Dr. Nascimento, his teller coordinator, who did see him in the hospital and Oncology. Also discharged on Xarelto for his newly diagnosed DVT and continuation of the steroid s and antibiotics. DISPOSITION: He is stable. DISCHARGE INSTRUCTIONS: 1. Location: Home. 2. Diet: Regular diet. 3. Activity as tolerated. 4. Follow up as mentioned above with Dr. Nascimento, Pulmonology and Oncology.
[2018-01-05] MEDS ORDERED: Furosemide 40 MG TAB PO SCH (07:30)
== END 2018-01-04 14:36 | disposition home or self-care (01) | DRG 180 ==
LOC: ERS 09:37 → IMCU/EMU 13:15
PROVIDERS: ADMIT Family Medicine; ATTEND Family Medicine
DX: C78.02 Secondary malignant neoplasm of left lung (principal); J96.01 Acute respiratory failure with hypoxia; I82.432 Acute embolism and thrombosis of left popliteal vein; I27.81 Cor pulmonale (chronic); E66.01 Morbid (severe) obesity due to excess calories; J44.0 Chronic obstructive pulmonary disease with (acute) lower respiratory infection; I82.442 Acute embolism and thrombosis of left tibial vein; J44.1 Chronic obstructive pulmonary disease with (acute) exacerbation; C78.01 Secondary malignant neoplasm of right lung; J20.9 Acute bronchitis, unspecified; Z87.891 Personal history of nicotine dependence; E78.5 Hyperlipidemia, unspecified; I10 Essential (primary) hypertension; I25.2 Old myocardial infarction; Z79.01 Long term (current) use of anticoagulants; Z79.52 Long term (current) use of systemic steroids; Z68.33 Body mass index [BMI] 33.0-33.9, adult; G47.33 Obstructive sleep apnea (adult) (pediatric); Z85.46 Personal history of malignant neoplasm of prostate; Z85.51 Personal history of malignant neoplasm of bladder; Z91.19 Patient's noncompliance with other medical treatment and regimen
CPT/HCPCS: 36415; 70470; 71045; 71275; 74177; 77075; 80048; 80053; 81003; 82378; 82550; 82553; 83615; 83880; 84153; 84484; 85025; 87040; 87086; 90471; 90682; 93005; 94640; 94660; 94760; 96361; 96372; 96374; G0008; J1650; J2930; J7620; Q2036